=== PATIENT | male | born 1995 | race Two or more races ===

== ENCOUNTER 2019-07-10 19:37 | Emergency (ER) | payer MEDICAID ==
[~2019-07-10] VITALS: Ht 152.4 cm; Wt 81.6 kg
[2019-07-10 20:00] VITALS: BP 145/91
[2019-07-10] MEDS ORDERED: ACYCLOVIR 400 MG TAB PO ONE (20:45)
[2019-07-10] MEDS ORDERED: AZITHROMYCIN 250 MG TAB PO ONE (20:45)
[2019-07-10] MEDS ORDERED: methylPREDNISolone SOD SUCC 125 MG/2 ML VL IM ONE (20:45)
[2019-07-10] MEDS ORDERED: cefTRIAXone SOD 1,000 MG VL IM ONE (20:45)
== END 2019-07-10 21:10 | disposition left against medical advice (07) ==
LOC: ER 19:41
DX: A60.01 Herpesviral infection of penis (principal); Z20.2 Contact with and (suspected) exposure to infections with a predominantly sexual mode of transmission
CPT/HCPCS: 96372; 99283; J0696; J2930